=== PATIENT | male | born 1950 | race Caucasian/White ===

== ENCOUNTER 2019-06-27 20:59 | Emergency (ER) | payer OTHER ==
[2019-06-27 21:10] VITALS: BP 141/82
--- NOTE | 2019-06-27 21:45 | ED Physician Documentation ---
PD HPI SKIN - Stated complaint Stated Complaint: BEE STING/ HAND SWELLING - Chief complaint Chief Complaint: Wound - History obtained from History obtained from: Patient - History of Present Illness Timing - onset: Enter time (19:00), Today Timing - details: Abrupt onset Location: RUE Quality / character: Burning, Raised, Swelling Improved by: No: Benadryl (took benadryl without noticable relief) Associated symptoms: No: Fever, Facial swelling, Dyspnea, N/V/D Contributing factors: Insect bite /sting Similar symptoms before: Other (was stung by a bee last week to face and had facial swelling which resolved after taking benadryl; that incident was the first time patient had any such reaction to bee sting) Recently seen: Not recently seen - Additional information Additional information: patient is right hand-dominant. he was stung by a bee tonight , stung on right hand, c/o rapid onset and progressive swelling and erythema of right hand, wrist , distal FA. Review of Systems Constitutional: denies: Fever Respiratory: denies: Dyspnea, Cough, Wheezing Skin: reports: Rash PD PAST MEDICAL HISTORY - Past Medical History Past Medical History: Yes Cardiovascular: Hypertension, High cholesterol - Past Surgical History Past Surgical History: Yes General: Appendectomy - Present Medications Home Medications: Ambulatory Orders Medication Instructions Recorded Confirmed Enalapril [Vasotec] 5 mg PO DAILY 06/27/19 06/27/19 Rovustatin 06/27/19 predniSONE [Prednisone] 40 mg PO DAILY 4 Days #8 tablet 06/27/19 - Allergies Allergies/Adverse Reactions: Allergies Allergy/AdvReac Type Severity Reaction Status Date / Time Sulfa (Sulfonamide Allergy Rash Verified 06/27/19 21:06 Antibiotics) - Social History Does the pt smoke?: No Smoking Status: Never smoker - Immunizations Immunizations are current?: Yes PD ED PE NORMAL - Vitals Vital signs reviewed: Yes - General General: Alert and oriented X 3, No acute distress, Well developed/nourished - Respiratory Respiratory: No respiratory distress PD ED PE EXPANDED - Extremities ELTON UE/Hands Visual: 1 - swelling (generalized swelling with erythema; not abnormally warm to touch and no significant TTP. no FB (including stinger) noted at reported sting site, including with use of magnification (lens from otoscope)) Results - Vitals Vitals: Vital Signs - 24 hr 06/27/19 21:03 Temperature 36.3 C L Heart Rate 86 Respiratory 18 Rate Blood Pressure 141/82 H O2 Saturation 99 Oxygen O2 Source Room air PD MEDICAL DECISION MAKING - ED course Complexity details: considered differential, d/w patient Departure - Departure Disposition: 01 Home, Self Care Clinical Impression: Bee sting reaction Condition: Good Instructions: ED Bite Sting Insect Local Allergic React Prescriptions: predniSONE [Prednisone] 40 mg PO DAILY 4 Days #8 tablet Discharge Date/Time: 06/27/19 22:13
[2019-06-27] MEDS ORDERED: predniSONE 20 MG TABLET PO STA (22:07)
== END 2019-06-27 22:13 | disposition home or self-care (01) ==
LOC: ED 20:59
DX: T63.441A Toxic effect of venom of bees, accidental (unintentional), initial encounter (principal); X58.XXXA Exposure to other specified factors, initial encounter; I10 Essential (primary) hypertension
CPT/HCPCS: 99282; 99283; J7512